=== PATIENT | female | born 1995 | race Hispanic/Latino ===

== ENCOUNTER → 2023-12-07 10:27 | Outpatient (REF) | payer OTHER, SELFPAY | LOC: PNTC 10:27 | PROVIDERS: ATTENDING PHYSICIAN Obstetrics & Gynecology | DX: O99.210 Obesity complicating pregnancy, unspecified trimester (principal); O09.529 Supervision of elderly multigravida, unspecified trimester | CPT/HCPCS: 76805 ==

== ENCOUNTER → 2024-01-03 09:33 | Outpatient (REF) | payer OTHER, SELFPAY | LOC: PNTC 09:33 | PROVIDERS: ATTENDING PHYSICIAN Obstetrics & Gynecology | DX: O99.210 Obesity complicating pregnancy, unspecified trimester (principal); O09.529 Supervision of elderly multigravida, unspecified trimester | CPT/HCPCS: 76811 ==

== ENCOUNTER → 2024-01-31 17:07 | Outpatient (REF) | payer OTHER, SELFPAY | LOC: PNTC 17:07 | PROVIDERS: ATTENDING PHYSICIAN Obstetrics & Gynecology | DX: O99.210 Obesity complicating pregnancy, unspecified trimester (principal) | CPT/HCPCS: 76816 ==

== ENCOUNTER → 2024-05-01 08:42 | Outpatient (REF) | payer OTHER, SELFPAY | LOC: PNTC 08:42 | PROVIDERS: ATTENDING PHYSICIAN Obstetrics & Gynecology | DX: O99.210 Obesity complicating pregnancy, unspecified trimester (principal) | CPT/HCPCS: 59025; 76815 ==

== ENCOUNTER 2024-05-07 10:32 | Inpatient (IN) | payer OTHER, SELFPAY ==
[2024-05-07] MEDS: LR 1000 IV ×2 (11:00→19:00)
[2024-05-07 11:11] VITALS: BP 109/74; BMI 38.5
[2024-05-07 11:33] LABS: % Basophils 0.3 % (0-2); % Eosinophils 0.3 % (0-6); % Immature Granulocytes 0.5 % (0-0.5); % Lymphocytes 19.4 % (20.5-51.1); % Monocytes 6.3 % (1.7-9.3); % Neutrophils 73.2 % (42.2-75.2); Absolute Immature Granulocytes 0.1 10^3/uL (0-0.05); Absolute Lymphocytes 2.1 10^3/uL (1.2-3.4); Absolute Monocytes 0.7 10^3/uL (0.1-0.6); Absolute Neutrophils 8.1 10^3/uL (1.4-6.5); Hematocrit 36.5 % (37.0-47.0); Hemoglobin 12.9 g/dL (12.0-16.0); Mean Corp Hgb Conc. 35.3 g/dL (33.0-37.0); Mean Corpuscular Hgb 30.5 pg (27.0-31.0); Mean Corpuscular Volume 86.3 fL (81.0-99.0); Mean Platelet Volume 12.3 fL (7.4-10.4); Nucleated Red Blood Cells % 0 %; Platelet Count 145 10^3/uL (130-400); Red Blood Cell Count 4.23 10^6/uL (4.20-5.40); Red Cell Dist. Width 14.1 % (11.5-14.5)
[2024-05-07] MEDS: PITOCIN 30 UNITS/NSS 500 ML IV (13:47)
[2024-05-07] MEDS: SUBLIMAZE 100 MCG EPIDURAL (18:50)
[2024-05-07] MEDS: FENTANYL/BUPIVACAINE 100 EPIDURAL (18:51)
[2024-05-08] MEDS: LR 1000 IV (00:10)
[2024-05-08] MEDS: FENTANYL/BUPIVACAINE 100 EPIDURAL (02:28)
[2024-05-08] MEDS: PITOCIN 30 UNITS/NSS 500 ML IV (09:00)
[2024-05-08 09:19] LABS: Cord ABG Comment CORD BLOOD
[2024-05-08 09:24] LABS: B.E. Cord ABG -7.5 mMOL/L; HCO3 Cord ABG 22.8 mmol/L; O2 Saturation % Cord ABG 17.5 %; PCO2 Cord ABG 64 mmHg; PO2 Cord ABG 12 mmHg; pH Cord ABG 7.16
[2024-05-08 09:27] LABS: B.E. Cord ABG -7.2 mMOL/L; HCO3 Cord ABG 20.2 mmol/L; O2 Saturation % Cord ABG 40.1 %; PCO2 Cord ABG 46 mmHg; PO2 Cord ABG 24 mmHg; pH Cord ABG 7.25
[2024-05-08] MEDS: ANCEF 5 IV (09:32)
[2024-05-08] MEDS: MORPHINE SULFATE 2 MG IV ×2 (09:35→09:52)
[2024-05-08] MEDS: MOTRIN 600 MG PO (15:56)
[2024-05-08] MEDS: SENOKOT-S 1 TABLET PO (19:43)
[2024-05-09] MEDS: MOTRIN 600 MG PO ×3 (00:50→17:00)
[2024-05-09] MEDS: TYLENOL 650 MG PO ×2 (00:50→17:00)
[2024-05-09 06:12] LABS: Hematocrit 23.2 % (37.0-47.0); Hemoglobin 8.2 g/dL (12.0-16.0)
[2024-05-09] MEDS: FEOSOL 325 MG PO ×2 (08:29→20:39)
[2024-05-09] MEDS: PRENATAL PLUS 1 TABLET PO (08:29)
[2024-05-09] MEDS: SENOKOT-S 1 TABLET PO ×2 (08:29→20:38)
[2024-05-10] MEDS: MOTRIN 600 MG PO ×2 (00:36→08:14)
[2024-05-10] MEDS: TYLENOL 650 MG PO ×2 (00:36→08:13)
[2024-05-10] MEDS: PRENATAL PLUS 1 TABLET PO (08:13)
[2024-05-10] MEDS: SENOKOT-S 1 TABLET PO (08:13)
[2024-05-10] MEDS: FEOSOL 325 MG PO (08:13)
[2024-05-10 12:09] LABS: Syphilis/T. pallidum Ab Reflex Negative (Negative)
== END 2024-05-10 14:05 | disposition home or self-care (01) | DRG 768 ==
LOC: LDRP 10:32
PROVIDERS: Obstetrics & Gynecology; ADMITTING PHYSICIAN Obstetrics & Gynecology
PROC: 10D07Z6 Extraction of Products of Conception, Vacuum, Via Natural or Artificial Opening (ICD-10-PCS; 2024-05-08)
PROC: 0DQR0ZZ Repair Anal Sphincter, Open Approach (ICD-10-PCS; 2024-05-08)
DX: O76 Abnormality in fetal heart rate and rhythm complicating labor and delivery (principal); Z37.0 Single live birth; O70.21 Third degree perineal laceration during delivery, IIIa; O99.02 Anemia complicating childbirth; O69.81X0 Labor and delivery complicated by cord around neck, without compression, not applicable or unspecified; Z3A.38 38 weeks gestation of pregnancy
CPT/HCPCS: 36415; 82803; 85014; 85018; 85025; 86780; 86850; 86900; 86901